=== PATIENT | female | born 1960 | race Caucasian/White ===

== ENCOUNTER 2018-11-18 21:15 | Observation (INO) ==
[2018-11-18 22:54] LABS: Basophils % 0.9 % (0.1-2.0); Eosinophils # 0.1 K/mm3 (0.0-0.4); Eosinophils % 1.5 % (0.1-12.0); Hematocrit 39.6 % (37.0-47.0); Hemoglobin 12.6 g/dL (12.2-16.2); Lymphocytes # 1.5 K/mm3 (0.7-4.5); Lymphocytes % 33.6 % (10-50); Mean Corpuscular HGB Conc 31.9 g/dL (31.8-35.4); Mean Platelet Volume 7.6 fl (7.4-10.4); Monocytes # 0.3 K/mm3 (0.1-1.0); Monocytes % 7.3 % (1.7-9.3); Neutrophils # 2.5 K/mm3 (1.8-7.8); Neutrophils % 56.7 % (37.0-80.0); Platelet Count 80 K/mm3 (142-424); Red Cell Distribution Width 13.1 % (11.5-17.5); White Blood Count 4.3 K/mm3 (4.8-10.8)
[2018-11-18 23:14] LABS: Alanine Aminotransferase 34 U/L (12-78); Albumin Level 3.2 gm/dL (3.4-5.0); Albumin/Globulin Ratio 0.9 (1.1-1.8); Alkaline Phosphatase 108 U/L (46-116); Anion Gap 10.2 mEq/L (5-15); Aspartate Amino Transferase 31 U/L (15-37); Bilirubin,Total 0.4 mg/dL (0.2-1.0); Blood Urea Nitrogen 26 mg/dL (7-18); Carbon Dioxide 29 mmol/L (21.0-32.0); Chloride 105 mmol/L (98-107); Globulin 3.7 gm/dl (1.3-3.2); Glucose 197 mg/dL (74-106); Sodium 141 mmol/L (136-145); Total Protein,Serum 6.9 gm/dL (6.4-8.2)
[2018-11-18 23:19] LABS: Calcium 14.3 mg/dL (8.5-10.1)
--- NOTE | 2018-11-19 00:55 | Emergency Department Note ---
ED Disposition Clinical Impression: Hypercalcemia, Generalized weakness, Hypokalemia, Renal insufficiency Fatigue Qualifiers: Fatigue type: unspecified Qualified Code(s): R53.83 - Other fatigue Sprain of left foot Qualifiers: Encounter type: initial encounter Qualified Code(s): S93.602A - Unspecified sprain of left foot, initial encounter Avulsion fracture of navicular bone of left foot Qualifiers: Encounter type: initial encounter Fracture type: closed Qualified Code(s): S92.252A - Displaced fracture of navicular [scaphoid] of left foot, initial encounter for closed fracture Disposition: Admitted as Observation Condition on Discharge: Fair (Stable) Time of Disposition: 01:30 - Critical Care Critical Care Time: No Attestation: On 11/18/18, the high probability of a clinically significant, sudden or life threatening deterioration of the following system(s) required my full and direct attention, intervention and personal management. The time I documented below is in addition to time spent performing reported procedures but includes the following listed in this critical care notation. Medical Decision Making - Medical Records Medical records reviewed: Yes: I reviewed the patient's medical records. - Guille Inquiry Pt receiving controlled substance: No Guille was queried for this patient: No Vital Signs: 11/18/18 21:25 11/18/18 22:27 11/19/18 00:39 Temperature 98.3 F Temperature Source Oral Pulse Rate [Right Brachial] 71 72 61 Respiratory Rate 18 18 16 Blood Pressure [Right Arm] 151/81 H 159/81 H 109/53 L Blood Pressure Mean [Right Arm] 104 107 71 Blood Pressure Source [Right Arm] Automatic Cuff Automatic Cuff Automatic Cuff Blood Pressure Position [Right Arm] Sitting Sitting Sitting 02 Sat by Pulse Oximetry 95 98 98 Oxygen Delivery Method Room Air Room Air Room Air - Lab Data Lab results reviewed: Yes: I reviewed the patient's lab results. Lab Results 11/18/18 21:38: POC Glucose 172 H 11/18/18 22:45: WBC 4.3 L, RBC 4.40, Hgb 12.6, Hct 39.6, MCV 90.0, MCH 28.7, MCHC 31.9, RDW 13.1, Plt Count 80 L, MPV 7.6, Neut % (Auto) 56.7, Lymph % (Auto) 33.6, [place] % (Auto) 7.3, Eos % (Auto) 1.5, Baso % (Auto) 0.9, Neut # (Auto) 2.5, Lymph # (Auto) 1.5, [place] # (Auto) 0.3, Eos # (Auto) 0.1, Baso # (Auto) 0.0 11/18/18 22:45: Sodium 141, Potassium 3.2 L, Chloride 105, Carbon Dioxide 29, Anion Gap 10.2, BUN 26 H, Creatinine 1.31 H, Estimated Creat Clear 54, Estimated GFR 41 L, Est GFR ( Amer) 50 L, Glucose 197 H, Calcium 14.3 H*, Total Bilirubin 0.4, AST 31, ALT 34, Alkaline Phosphatase 108, Troponin I < 0.02, Total Protein 6.9, Albumin 3.2 L, Globulin 3.7 H, Albumin/Globulin Ratio 0.9 L Result diagrams: 11/18/18 22:45 11/18/18 22:45 Orders (Tests/Meds): ED MEDICATIONS Generic Name Dose Route Start Last Admin Trade Name Freq PRN Reason Stop Dose Admin Sodium Chloride 1,000 mls @ 300 mls/hr 11/19/18 01:15 11/19/18 01:24 Sod Chlor 0.9% 1000ml Bag IV 12/19/18 01:14 300 mls/hr .[id number] MATTHEW Administration Discontinued Medications Generic Name Dose Route Start Last Admin Trade Name Freq PRN Reason Stop Dose Admin Potassium Chloride 40 meq 11/19/18 01:12 11/19/18 01:24 Klor-Con 20meq Tablet PO 11/19/18 01:13 40 meq ONCE ONE Administration ORDERS Category Date Time Status XR chest 2V Stat Exams 11/18/18 21:42 Taken XR foot LT min 3V Stat Exams 11/18/18 21:42 Taken ECG Request by /Santosh Stat Y 11/18/18 21:42 Ordered - ECG Data Tracing #1 I reviewed this ECG and interpreted as documented below: (EKG at 21:32 shows NSR at 70 BPM.) Medical Decision Narrative: 01:07 Pt evaluated. Work up ordered. All results reviewed. Pt noted to have significant hypercalcemia. X-ray of left foot showed possible midfoot navicular avulsion fracture. PCXR normal without acute changes. IV saline hydration ordered for hypercalcemia. CHRISTOPHE ordered for left foot. I have discussed results of work up, diagnosis and care plan with pt and family. They understand, agree and all questions answered. I will discuss case with Dr. Smith regarding admission of this pt. 01:[address] Kellogg. She has accepted care/admit of this pt. General Adult HPI - General Chief complaint: Syncope Stated complaint: keeps blacking out Time Seen by Provider: 11/19/18 00:05 Mode of Arrival: Family Vehicle Limitations: No Limitations Description of Symptoms (Recalled from ER Triage Doc. by RN): Pts daughter states she has been having spells where she gets weak and dizzy and gets limp, the daughter states she fell with this last spell and hurt her left foot. Pt states she has Dm and doesn't keep the a good eye on her sugar. No other symptoms reported at this time. - History of Present Illness HPI narrative: Pt is here in the ER for evaluation with family c/o progressive increase in generalized weakness and fatigue over the past week. Pt has had an elevated calcium in the past and is being worked up by her PCP in [place], [place]. Pt had weakness early tonight and rotated her left foot causing pain, swelling and bruising. Pt denies headache, dizziness, lightheadedness. No chest pain, sob or abdominal pain. No unilateral weakness. History of fibromyalgia and chronic pain. Pt compliant with prescribed medicines. - Related Data Home Medications Medication Instructions Recorded Confirmed Aspirin [Aspirin 81mg chewable 81 mg PO DAILY 11/18/18 11/18/18 tab] Atenolol [Atenolol 25mg Tab] 25 mg PO DAILY 11/18/18 11/18/18 Atorvastatin Calcium [Atorvastatin 80 mg PO DAILY 11/18/18 11/18/18 80mg Tab] Baclofen [Lioresal 10mg tablet] 10 mg PO DAILY 11/18/18 11/18/18 Doxepin HCl [Sinequan 10mg capsule] 10 mg PO DAILY 11/18/18 11/18/18 Ferrous Sulfate [Ferrous Sulfate 325 mg PO DAILY 11/18/18 11/18/18 325mg Tablet] Pregabalin [Lyrica 225mg Cap] 225 mg PO DAILY 11/18/18 11/18/18 Ropinirole HCl 0.25 mg PO DAILY 11/18/18 11/18/18 raNITIdine HCl [Ranitidine HCl] 150 mg PO DAILY 11/18/18 11/18/18 Allergies Allergy/AdvReac Type Severity Reaction Status Date / Time penicillin G Allergy Unknown Verified 11/18/18 21:41 [facility] History - Hepatitis A Screen Drug use history?: No High risk sexual behaviors?: No History of sexually transmitted infection?: No Currently employed?: No Childcare worker?: No Do you have indoor plumbing?: Yes Do you have electricity?: Yes Attestation statement:: This patient has been screened for Hepatitis A risk factors. I have reviewed the patient's past medical history: Yes Medical History: Reports:: Diabetes Mellitus Type 2 - Social History Smoking Status: Current every day smoker # Packs/Day (cigarettes): 1 Alcohol Intake: never Occupational Status: retired Housing: house ROS Obtained: Yes All systems reviewed & no additional complaints - Constitutional Constitutional: Reports system reviewed and no additional complaints, except as docu, Reports as per HPI, Reports fatigue, Reports weakness (generalized) - Eyes Eyes: Reports system reviewed and no additional complaints, except as docu - ENT Ears, Nose, Mouth, and Throat: Reports system reviewed and no additional complaints, except as docu - Cardiovascular Cardiovascular: Reports system reviewed and no additional complaints, except as docu - Respiratory Respiratory: Yes system reviewed and no additional complaints, except as docu - Gastrointestinal Gastrointestingal: Reports: system reviewed and no additional complaints, except as docu - Genitourinary Female Genitourinary: Reports system reviewed and no additional complaints, except as docu - Musculoskeletal Musculoskeletal: Reports system reviewed and no additional complaints, except as docu, Reports as per HPI, Reports muscle weakness (Generalized.), Reports other (Left foot pain, swelling. Fibromyalgia. Chronic pain.) - Integumentary/Breasts Skin/Breast: Reports system reviewed and no additional complaints, except as docu - Neurologic Neurologic: Reports system reviewed and no additional complaints, except as docu - Endocrine Endocrine: Reports system reviewed and no additional complaints, except as docu - Hematologic/Lymphatic Henatologic/Lymphatic: Reports system reviewed and no additional complaints, except as docu - Allergic/Immunologic Allergic/Immunologic: Reports system reviewed and no additional complaints, except as docu Physical Exam - General General appearance: alert, in no apparent distress - Head Head exam: atraumatic, normocephalic, normal inspection - Eye Eye exam: Present: normal appearance, PERRL, EOMI - ENT ENT exam: Present: normal exam, normal oropharynx, mucous membranes moist, other (No otic or nasal discharge.) - Neck Neck exam: Present: trachea midline - Chest Chest inspection: Present: normal inspection, symmetric chest wall rise - Respiratory Respiratory exam: Present: normal lung sounds bilaterally. Absent: respiratory distress, wheezes - Cardiovascular Cardiovascular exam: Present: regular rate, normal heart sounds. Absent: gallop - Abdominal Exam Abdominal exam: Present: soft, normal bowel sounds. Absent: distention, tenderness, guarding, rebound - Extremities Exam Extremities exam: Present: normal inspection, full ROM, normal capillary refill. Absent: tenderness - Back Exam Back exam: Present: normal inspection - Neurological Exam Neurological exam: Present: alert, oriented X3, CN II-XII intact, reflexes normal. Absent: motor sensory deficit - Psychiatric Psychiatric exam: Present: normal affect, normal mood - Skin Skin exam: Present: warm, dry, intact
--- NOTE | 2018-11-19 07:10 | Pharmacy Consult Notes ---
[facility] Pharmacy VTE Monitoring - Patient Demographics Admission date: 11/19/18 Report Date: 11/19/18 Time: 07:10 Allergies/Adverse Reactions: Patient Allergies penicillin G Allergy (Unknown, Verified 11/18/18 21:41) adhesive Adverse Reaction (Verified 11/19/18 05:09) lorazepam [From Ativan] Adverse Reaction (Verified 11/19/18 05:10) Confusion Height: 1.6 m Weight: 73.595 kg Patient Problems: Current Active Problems (Updated 11/19/18 @ 02:51 by Joaquin Shahid III, DO) Hypercalcemia (Acute) Generalized weakness (Acute) Fatigue (Acute) Sprain of left foot (Acute) Avulsion fracture of navicular bone of left foot (Acute) Hypokalemia (Acute) Renal insufficiency (Acute) - VTE Risk Labs: VTE Related Lab Results Hgb 12.6 g/dL (12.2-16.2) 11/18/18 22:45 Hct 39.6 % (37.0-47.0) 11/18/18 22:45 Plt Count 80 K/mm3 (142-424) L 11/18/18 22:45 BUN 26 mg/dL (7-18) H 11/18/18 22:45 Creatinine 1.31 mg/dL (0.55-1.02) H 11/18/18 22:45 Estimated Creat Clear 54 mL/min (50-200) 11/18/18 22:45 Was VTE Risk Assessment Performed: Yes VTE Score: 4 VTE Risk Level: Low Risk Clinical Trial Participant: No - Prophylaxis VTE Prophylaxis Ordered?: Yes Types of VTE Prophylaxis: TEDS Knee High
[2018-11-19 07:58] LABS: Albumin Level 2.9 gm/dL (3.4-5.0); Albumin/Globulin Ratio 0.9 (1.1-1.8); Anion Gap 9.7 mEq/L (5-15); Bilirubin,Total 0.4 mg/dL (0.2-1.0); Globulin 3.4 gm/dl (1.3-3.2); Total Protein,Serum 6.3 gm/dL (6.4-8.2)
[2018-11-19 08:04] LABS: Calcium 13.1 mg/dL (8.5-10.1)
--- NOTE | 2018-11-19 12:01 | H&P/Discharge Summary ---
General - General Admission date:: 11/19/18 Discharge date: 11/19/18 *Admission Date: 11/19/18 *Chief complaint: weakness, fall at home, left foot pain *History of present illness: Ms. Crandall is a 58-year-old female with a history of type 2 diabetes, fibromyalgia, hypertension, hyperlipidemia, history of liver cancer, and restless leg syndrome who has had a progressive increase in generalized weakness and fatigue over the past week. She has had an elevated calcium in the past and this is currently being worked up by her primary care physician Yolande Davies at . She states Thursday and Thursday she began feeling poorly and yesterday was extremely lethargic. She has not been eating and drinking well the past few days. She laid down and took a nap for 4 to 5 hours and when she got up to walk after sleeping, she fell ajd her left foot twisted underneath of her. Her daughter made her come to the ER for evaluation. She did have an x-ray of the left foot showing a possible midfoot navicular avulsion fracture. She was admitted and started on IV fluids and an [place] wrap was applied to the left foot. [facility] History I have reviewed the patient's past medical history: Yes Medical History: Reports:: Cancer (Liver), Diabetes Mellitus Type 2, Hyperlipidemia, Hypertension *Have you ever received a pneumonia vaccine?: Yes *Have you received a flu vaccine this season?: Yes Other Medical History: Reports: Fibromyalgia, Other (RLS) Other Surgeries: Yes: Appendectomy, Cholecystectomy, Hysterectomy-Total, Other (Liver bx, liver resection, breast surgery) - *Social History Educational Level: Completed High School Smoking Status: Current every day smoker Tobacco Type: cigarettes, e-cigarettes # Packs/Day (cigarettes): 1 Alcohol Intake: never *Occupational Status:: retired Housing: house *Travel in the last 8 weeks: None - Psychiatric History Expresses thoughts of harming self/others: None Suicide Plan Description: No Plan Family Hx:: Cancer, Coronary Artery Disease, Heart Attack, Hypertension, Thyroid Disorder Review of Systems - Constitutional Reports chills, Reports malaise, Reports weakness - Eyes Denies blurry vision, Denies double vision - ENT Denies nasal congestion, Denies sore throat - *Cardiovascular Denies chest pain, Denies shortness of breath, Denies rapid, pounding, or irregular heartbeat - *Respiratory Denies cough, Denies shortness of breath - *Gastrointestinal Denies abdominal pain, Denies loose stools, Denies nausea, Denies vomiting - *Genitourinary Denies difficulty urinating, Denies painful urination - *Musculoskeletal Reports joint pain (left foot and right hip (chronic)) - *Neurologic Reports weakness (generalized), Denies frequent falls, Denies headache(s), Denies dizziness Exam Vital signs and Labs for Last 24 Hours: Temp Pulse Resp BP Pulse Ox 98.2 F 78 17 178/80 H 96 11/19/18 08:00 11/19/18 08:00 11/19/18 08:00 11/19/18 08:00 11/19/18 08:00 Laboratory Results - last 24 hr 11/18/18 21:38: POC Glucose 172 H 11/18/18 22:45: WBC 4.3 L, RBC 4.40, Hgb 12.6, Hct 39.6, MCV 90.0, MCH 28.7, MCHC 31.9, RDW 13.1, Plt Count 80 L, MPV 7.6, Neut % (Auto) 56.7, Lymph % (Auto) 33.6, [place] % (Auto) 7.3, Eos % (Auto) 1.5, Baso % (Auto) 0.9, Neut # (Auto) 2.5, Lymph # (Auto) 1.5, [place] # (Auto) 0.3, Eos # (Auto) 0.1, Baso # (Auto) 0.0 11/18/18 22:45: Sodium 141, Potassium 3.2 L, Chloride 105, Carbon Dioxide 29, Anion Gap 10.2, BUN 26 H, Creatinine 1.31 H, Estimated Creat Clear 54, Estimated GFR 41 L, Est GFR ( Amer) 50 L, Glucose 197 H, Calcium 14.3 H*, Total Bilirubin 0.4, AST 31, ALT 34, Alkaline Phosphatase 108, Troponin I < 0.02, Total Protein 6.9, Albumin 3.2 L, Globulin 3.7 H, Albumin/Globulin Ratio 0.9 L 11/19/18 07:30: Sodium 141, Potassium 3.7, Chloride 107, Carbon Dioxide 28, Anion Gap 9.7, BUN 25 H, Creatinine 1.26 H, Estimated Creat Clear 55, Estimated GFR 43 L, Est GFR ( Amer) 52 L, Glucose 259 H D, Calcium 13.1 H*, Total Bilirubin 0.4, AST 31, ALT 31, Alkaline Phosphatase 98, Total Protein 6.3 L, Albumin 2.9 L, Globulin 3.4 H, Albumin/Globulin Ratio 0.9 L I & O for Last 24 hours: Intake & Output 11/16/18 11/17/18 11/18/18 11/19/18 11:59 11:59 11:59 11:59 Intake Total 1103 / 1103 Balance 1103 / 1103 Weight 162 lb 4 oz - Constitutional no acute distress - *Routine HEENT Exam Head: Present: normocephalic Eye: Present: EOMI, PERRL ENT: Present: mucous membranes moist - *Routine Neck Exam Present: supple. Absent: lymphadenopathy - *Routine Respiratory Exam Present: CTA bilaterally - *Routine Cardiovascular Exam Present: RRR - *Routine Abdominal Exam Present: soft, normoactive bowel sounds. Absent: tenderness - *Routine Extremities Exam Absent: cyanosis, clubbing, edema - *Routine Skin Exam Present: warm. Absent: rash Comments: left foot wrapped with an BENITO bandage, there is ttp across the whole dorsal aspect of the foot with significant ecchymosis - *Routine Neurological Exam Present: alert, oriented X3 Hospital Course Hospital Course: The patient's renal function and potassium have improved. Her calcium has improved but is still elevated. This is currently being worked up by her primary care provider at . She states she does have an appointment with an gas singer. She felt much better after IV fluids and wanted to go home. Dr. Morales was consulted for the left foot fracture and did place a splint. The patient was stable to be discharged home with a walker and foot splint as well as Home Health PT. She will need to f/u with her PCP and Dr. Morales. Results Labs on day of discharge: Labs from last 24 hours 11/19/18 11/18/18 11/18/18 07:30 22:45 22:45 WBC 4.3 L RBC 4.40 Hgb 12.6 Hct 39.6 MCV 90.0 MCH 28.7 MCHC 31.9 RDW 13.1 Plt Count 80 L MPV 7.6 Neut % (Auto) 56.7 Lymph % (Auto) 33.6 [place] % (Auto) 7.3 Eos % (Auto) 1.5 Baso % (Auto) 0.9 Neut # (Auto) 2.5 Lymph # (Auto) 1.5 [place] # (Auto) 0.3 Eos # (Auto) 0.1 Baso # (Auto) 0.0 Sodium 141 141 Potassium 3.7 3.2 L Chloride 107 105 Carbon Dioxide 28 29 Anion Gap 9.7 10.2 BUN 25 H 26 H Creatinine 1.26 H 1.31 H Estimated Creat Clear 55 54 Estimated GFR 43 L 41 L Est GFR ( Amer) 52 L 50 L Glucose 259 H D 197 H POC Glucose Calcium 13.1 H* 14.3 H* Total Bilirubin 0.4 0.4 AST 31 31 ALT 31 34 Alkaline Phosphatase 98 108 Troponin I < 0.02 Total Protein 6.3 L 6.9 Albumin 2.9 L 3.2 L Globulin 3.4 H 3.7 H Albumin/Globulin Ratio 0.9 L 0.9 L 11/18/18 21:38 WBC RBC Hgb Hct MCV MCH MCHC RDW Plt Count MPV Neut % (Auto) Lymph % (Auto) [place] % (Auto) Eos % (Auto) Baso % (Auto) Neut # (Auto) Lymph # (Auto) [place] # (Auto) Eos # (Auto) Baso # (Auto) Sodium Potassium Chloride Carbon Dioxide Anion Gap BUN Creatinine Estimated Creat Clear Estimated GFR Est GFR ( Amer) Glucose POC Glucose 172 H Calcium Total Bilirubin AST ALT Alkaline Phosphatase Troponin I Total Protein Albumin Globulin Albumin/Globulin Ratio DS: Diagnosis - Discharge Diagnosis (1) Avulsion fracture of navicular bone of left foot Status: Acute (2) Fatigue Status: Acute (3) Generalized weakness Status: Acute (4) Hypercalcemia Status: Acute (5) Hypokalemia Status: Acute (6) Renal insufficiency Status: Acute (7) Type 2 diabetes mellitus Status: Chronic (8) Fibromyalgia Status: Chronic (9) Hypertension Status: Chronic (10) Hyperlipidemia Status: Chronic Discharge Plan - Patient Discharge Instructions ACTIVITY: Ambulate as tolerated, Limited activity, No heavy lifting Patient Instructions: Kidney Failure, DI for Fatigue, DI for Hypokalemia, DI for Avulsion Fracture, DI for Hypercalcemia, DI for Foot Sprain - Follow up Plan Follow up with: Emmy Morales DPM [Staff Physician] - 11/29/18 3:30 pm Rafaela Kellogg MD [Staff Physician] - 1 week (at [facility] ( afternoon)) Disposition: Home Health Service Home Medications: Home Medications Medication Instructions Recorded Confirmed Type Aspirin [Aspirin 81mg chewable 81 mg PO DAILY 11/18/18 11/18/18 History tab] Atenolol [Atenolol 25mg Tab] 25 mg PO DAILY 11/18/18 11/18/18 History Atorvastatin Calcium [Atorvastatin 80 mg PO HS 11/18/18 11/19/18 History 80mg Tab] Baclofen [Lioresal 10mg tablet] 5 mg PO TID 11/18/18 11/19/18 History Ferrous Sulfate [Ferrous Sulfate 325 mg PO DAILY 11/18/18 11/18/18 History 325mg Tablet] Pregabalin [Lyrica 225mg Cap] 225 mg PO BID 11/18/18 11/19/18 History Ropinirole HCl 0.5 mg PO HS 11/18/18 11/19/18 History raNITIdine HCl [Ranitidine HCl] 150 mg PO BID 11/18/18 11/19/18 History Allopurinol [Allopurinol 100mg 100 mg PO DAILY 11/19/18 11/19/18 History tablet] Cholecalciferol (Vitamin D3) 1,000 unit PO DAILY 11/19/18 11/19/18 History [Vitamin D3 1,000 Unit Cap] Doxepin HCl [Sinequan 10mg capsule] 10 mg PO HS 11/19/18 11/19/18 History Fenofibrate,Micronized 67 mg PO DAILY 11/19/18 11/19/18 History [Fenofibrate] Insulin NPH Hum/Reg Insulin Hm 0 unit SQ DIRECTED 11/19/18 11/19/18 History [Novolin 70-30 100 Unit/ml Vial] Lisinopril [Lisinopril 10mg Tab] 10 mg PO DAILY 11/19/18 11/19/18 History Oxycodone HCl 10 mg PO QID 11/19/18 11/19/18 History Tramadol HCl [Tramadol 50mg 50 mg PO TID 11/19/18 11/19/18 History Tab] fentaNYL [Fentanyl] 12 mcg TD Q72H 11/19/18 11/19/18 History Prescriptions/Medication Reconciliation: Continued Aspirin [Aspirin 81mg chewable tab] 81 mg PO DAILY Ferrous Sulfate [Ferrous Sulfate 325mg Tablet] 325 mg PO DAILY Ropinirole HCl 0.5 mg PO HS raNITIdine HCl [Ranitidine HCl] 150 mg PO BID Pregabalin [Lyrica 225mg Cap] 225 mg PO BID Baclofen [Lioresal 10mg tablet] 5 mg PO TID Atenolol [Atenolol 25mg Tab] 25 mg PO DAILY Fenofibrate,Micronized [Fenofibrate] 67 mg PO DAILY fentaNYL [Fentanyl] 12 mcg TD Q72H Lisinopril [Lisinopril 10mg Tab] 10 mg PO DAILY Oxycodone HCl 10 mg PO QID Tramadol HCl [Tramadol 50mg Tab] 50 mg PO TID Cholecalciferol (Vitamin D3) [Vitamin D3 1,000 Unit Cap] 1,000 unit PO DAILY Atorvastatin Calcium [Atorvastatin 80mg Tab] 80 mg PO HS Allopurinol [Allopurinol 100mg tablet] 100 mg PO DAILY Doxepin HCl [Sinequan 10mg capsule] 10 mg PO HS Insulin NPH Hum/Reg Insulin Hm [Novolin 70-30 100 Unit/ml Vial] 0 unit SQ DIRECTED
--- NOTE | 2018-11-19 14:26 | Consult Report ---
*Admission Date: 11/19/18 *Reason for consult:: Left foot fracture *History of present illness: Ms. Crandall is a 58-year-old female with a history of type 2 diabetes, fibromyalgia, hypertension, hyperlipidemia, history of liver cancer, and restless leg syndrome who has had a progressive increase in generalized weakness and fatigue over the past week. She has had an elevated calcium in the past and this is currently being worked up by her primary care physician Yolande Davies at . She states Thursday and Thursday she began feeling poorly and yesterday was extremely lethargic. She has not been eating and drinking well the past few days. She laid down and took a nap for 4 to 5 hours and when she got up to walk after sleeping, she fell ajd her left foot twisted underneath of her. Her daughter made her come to the ER for evaluation. She did have an x-ray of the left foot showing a possible midfoot navicular avulsion fracture. She was admitted and started on IV fluids and an Benito wrap was applied to the left foot. Review of Systems - Review of Systems Review of systems:: pertinent systems reviewed and negative unless documented below - Constitutional Denies chills, Denies fatigue - Eyes Denies blurry vision - ENT Denies abnormal hearing - *Cardiovascular Denies chest pain - *Respiratory Denies shortness of breath - *Gastrointestinal Denies abdominal pain - *Musculoskeletal Reports joint swelling - Integumentary/Breasts Reports nail changes, Reports dry skin - *Neurologic Reports weakness (generalized), Denies frequent falls, Denies headache(s), Denies dizziness [facility] History I have reviewed the patient's past medical history: Yes Medical History: Reports:: Cancer (Liver), Diabetes Mellitus Type 2, Hyperlipidemia, Hypertension *Have you ever received a pneumonia vaccine?: Yes *Have you received a flu vaccine this season?: Yes Other Medical History: Reports: Fibromyalgia, Other (RLS) Other Surgeries: Yes: Appendectomy, Cholecystectomy, Hysterectomy-Total, Other (Liver bx, liver resection, breast surgery) - *Social History Educational Level: Completed High School Smoking Status: Current every day smoker Tobacco Type: cigarettes, e-cigarettes # Packs/Day (cigarettes): 1 Alcohol Intake: never *Occupational Status:: retired Housing: house *Travel in the last 8 weeks: None - Psychiatric History Expresses thoughts of harming self/others: None Suicide Plan Description: No Plan Family Hx:: Cancer, Coronary Artery Disease, Heart Attack, Hypertension, Thyroid Disorder Meds Home Medications Medication Instructions Recorded Confirmed Type Aspirin [Aspirin 81mg chewable 81 mg PO DAILY 11/18/18 11/18/18 History tab] Atenolol [Atenolol 25mg Tab] 25 mg PO DAILY 11/18/18 11/18/18 History Atorvastatin Calcium [Atorvastatin 80 mg PO HS 11/18/18 11/19/18 History 80mg Tab] Baclofen [Lioresal 10mg tablet] 5 mg PO TID 11/18/18 11/19/18 History Ferrous Sulfate [Ferrous Sulfate 325 mg PO DAILY 11/18/18 11/18/18 History 325mg Tablet] Pregabalin [Lyrica 225mg Cap] 225 mg PO BID 11/18/18 11/19/18 History Ropinirole HCl 0.5 mg PO HS 11/18/18 11/19/18 History raNITIdine HCl [Ranitidine HCl] 150 mg PO BID 11/18/18 11/19/18 History Allopurinol [Allopurinol 100mg 100 mg PO DAILY 11/19/18 11/19/18 History tablet] Cholecalciferol (Vitamin D3) 1,000 unit PO DAILY 11/19/18 11/19/18 History [Vitamin D3 1,000 Unit Cap] Doxepin HCl [Sinequan 10mg capsule] 10 mg PO HS 11/19/18 11/19/18 History Fenofibrate,Micronized 67 mg PO DAILY 11/19/18 11/19/18 History [Fenofibrate] Insulin NPH Hum/Reg Insulin Hm 0 unit SQ DIRECTED 11/19/18 11/19/18 History [Novolin 70-30 100 Unit/ml Vial] Lisinopril [Lisinopril 10mg Tab] 10 mg PO DAILY 11/19/18 11/19/18 History Oxycodone HCl 10 mg PO QID 11/19/18 11/19/18 History Tramadol HCl [Tramadol 50mg 50 mg PO TID 11/19/18 11/19/18 History Tab] fentaNYL [Fentanyl] 12 mcg TD Q72H 11/19/18 11/19/18 History Allergies Allergy/AdvReac Type Severity Reaction Status Date / Time penicillin G Allergy Unknown Verified 11/18/18 21:41 adhesive AdvReac Verified 11/19/18 05:09 lorazepam [From Ativan] AdvReac Confusion Verified 11/19/18 05:10 Exam Vital signs and Labs for Last 24 Hours: Temp Pulse Resp BP Pulse Ox 98.2 F 78 17 178/80 H 96 11/19/18 08:00 11/19/18 08:00 11/19/18 08:00 11/19/18 08:00 11/19/18 08:00 Laboratory Results - last 24 hr 11/18/18 21:38: POC Glucose 172 H 11/18/18 22:45: WBC 4.3 L, RBC 4.40, Hgb 12.6, Hct 39.6, MCV 90.0, MCH 28.7, MCHC 31.9, RDW 13.1, Plt Count 80 L, MPV 7.6, Neut % (Auto) 56.7, Lymph % (Auto) 33.6, [place] % (Auto) 7.3, Eos % (Auto) 1.5, Baso % (Auto) 0.9, Neut # (Auto) 2.5, Lymph # (Auto) 1.5, [place] # (Auto) 0.3, Eos # (Auto) 0.1, Baso # (Auto) 0.0 11/18/18 22:45: Sodium 141, Potassium 3.2 L, Chloride 105, Carbon Dioxide 29, Anion Gap 10.2, BUN 26 H, Creatinine 1.31 H, Estimated Creat Clear 54, Estimated GFR 41 L, Est GFR ( Amer) 50 L, Glucose 197 H, Calcium 14.3 H*, Total Bilirubin 0.4, AST 31, ALT 34, Alkaline Phosphatase 108, Troponin I < 0.02, Total Protein 6.9, Albumin 3.2 L, Globulin 3.7 H, Albumin/Globulin Ratio 0.9 L 11/19/18 07:30: Sodium 141, Potassium 3.7, Chloride 107, Carbon Dioxide 28, Anion Gap 9.7, BUN 25 H, Creatinine 1.26 H, Estimated Creat Clear 55, Estimated GFR 43 L, Est GFR ( Amer) 52 L, Glucose 259 H D, Calcium 13.1 H*, Total Bilirubin 0.4, AST 31, ALT 31, Alkaline Phosphatase 98, Total Protein 6.3 L, Albumin 2.9 L, Globulin 3.4 H, Albumin/Globulin Ratio 0.9 L I & O for Last 24 hours: Intake & Output 11/17/18 11/18/18 11/19/18 11/20/18 11:59 11:59 11:59 11:59 Intake Total 1103 / 1103 240 / 240 Balance 1103 / 1103 240 / 240 Weight 162 lb 4 oz - *Routine HEENT Exam Head: Present: normocephalic - *Routine Neck Exam Present: supple - *Routine Respiratory Exam Present: accessory muscle use - *Routine Cardiovascular Exam Present: RRR - *Routine Abdominal Exam Present: soft - *Routine Rectal Exam Patient deferred: visual exam - *Routine Exam Patient deferred: external exam - *Routine Extremities Exam Present: edema, normal capillary refill, tenderness - *Routine Neurological Exam Present: alert, moving all extremities - Detailed Lower Extremity Exam Top foot image: 1 - Left foot: pain to palpation of 1-4th metatarsals. Pain to 1-3rd TMT joints. Edema and ecchymosis noted. Skin temp warm, no open lesions/ulcers noted. CFT wnl. Decreased light touch sensation b/l LE. Results - Labs Result Diagrams: 11/18/18 22:45 11/19/18 07:30 Labs: Abnormal lab results 11/18/18 11/18/18 11/18/18 Range/Units 21:38 22:45 22:45 WBC 4.3 L (4.8-10.8) K/mm3 Plt Count 80 L (142-424) K/mm3 Potassium 3.2 L (3.5-5.1) mmoL/L BUN 26 H (7-18) mg/dL Creatinine 1.31 H (0.55-1.02) mg/dL Estimated GFR 41 L (>60) ml/min Est GFR ( Amer) 50 L (>60) ML/MIN Glucose 197 H (74-106) mg/dL POC Glucose 172 H (70-110) Calcium 14.3 H* (8.5-10.1) mg/dL Total Protein (6.4-8.2) gm/dL Albumin 3.2 L (3.4-5.0) gm/dL Globulin 3.7 H (1.3-3.2) gm/dl Albumin/Globulin Ratio 0.9 L (1.1-1.8) 11/19/18 Range/Units 07:30 WBC (4.8-10.8) K/mm3 Plt Count (142-424) K/mm3 Potassium (3.5-5.1) mmoL/L BUN 25 H (7-18) mg/dL Creatinine 1.26 H (0.55-1.02) mg/dL Estimated GFR 43 L (>60) ml/min Est GFR ( Amer) 52 L (>60) ML/MIN Glucose 259 H D (74-106) mg/dL POC Glucose (70-110) Calcium 13.1 H* (8.5-10.1) mg/dL Total Protein 6.3 L (6.4-8.2) gm/dL Albumin 2.9 L (3.4-5.0) gm/dL Globulin 3.4 H (1.3-3.2) gm/dl Albumin/Globulin Ratio 0.9 L (1.1-1.8) H & H 11/18/18 Range/Units 22:45 Hgb 12.6 (12.2-16.2) g/dL Hct 39.6 (37.0-47.0) % All other labs normal. - Diagnostic results Ankle/Foot x-ray: report reviewed, image reviewed Ankle/Foot CT: report reviewed, image reviewed Assessment and Plan (1) Avulsion fracture of navicular bone of left foot Current visit: Yes Status: Acute Qualifiers: Encounter type: initial encounter Fracture type: closed Qualified Code(s): S92.252A - Displaced fracture of navicular [scaphoid] of left foot, initial encounter for closed fracture Category: Medical Code(s): S92.252A - Displaced fracture of navicular [scaphoid] of left foot, initial encounter for closed fracture (2) Fatigue Current visit: Yes Status: Acute Qualifiers: Fatigue type: unspecified Qualified Code(s): R53.83 - Other fatigue Category: Medical Code(s): R53.83 - Other fatigue (3) Generalized weakness Current visit: Yes Status: Acute Category: Medical Code(s): R53.1 - Weakness (4) Hypercalcemia Current visit: Yes Status: Acute Category: Medical Code(s): E83.52 - Hypercalcemia (5) Hypokalemia Current visit: Yes Status: Acute Category: Medical Code(s): E87.6 - H ypokalemia (6) Renal insufficiency Current visit: Yes Status: Acute Category: Medical Code(s): N28.9 - Disorder of kidney and ureter, unspecified (7) Type 2 diabetes mellitus Current visit: Yes Status: Chronic Category: Medical Code(s): E11.9 - Type 2 diabetes mellitus without complications (8) Fibromyalgia Current visit: Yes Status: Chronic Category: Medical Code(s): M79.7 - Fibromyalgia (9) Hypertension Current visit: Yes Status: Chronic Category: Medical Code(s): I10 - Essential (primary) hypertension (10) Hyperlipidemia Current visit: Yes Status: Chronic Category: Medical Code(s): E78.5 - Hyperlipidemia, unspecified (11) Lisfranc fracture Current visit: Yes Status: Acute Category: Medical (12) Fracture of metatarsal of left foot, closed Current visit: Yes Status: Acute Category: Medical Code(s): S92.302A - Fracture of unspecified metatarsal bone(s), left foot, initial encounter for closed fracture - Assessment and plan all Dx Assessment and Plan for all problems:: Left foot LisFranc fracture: Left foot xray, 11/18/18: Small avulsion fracture is suspected at the first metatarsal tarsal junction dorsally Left foot CT, 11/19/18: FINDINGS: There is an irregular fracture through the lateral border of the first cuneiforms bone and a linear vertical fracture through the lateral base of the first metatarsal. There are a avulsion chip fractures of the bases of the second third and fourth metatarsals. Fractures at the bases of the second and third metatarsals appear to be comminuted. Though this appears be a Lisfranc type injury there is no obvious tarsometatarsal dislocation identified. The talus and calcaneus appear intact and the plantar arch is normal. There may be mild diffuse soft tissue swelling of the dorsum of the foot. IMPRESSION: Lisfranc type injury involving the first cuneiform bone and bases of the first, second, third and fourth metatarsals Reviewed and evaluated xrays and CT myself. Discussed the x-rays and exam with the patient. Pain controlled. Patient has been compliant with NWB. *Case mgmt for walker prior to d/c 1. Applied a Suarez compression plaster splint on floor 2. Ice and elevate for pain and swelling 3. NSAIDs as needed 4. F/u for re-xray in 4 weeks 5. F/u outpatient in 1.5-2 weeks for splint cast change
== END 2018-11-19 15:40 | disposition home health service (06) ==
LOC: ER 21:15 → 2ND 21:15
PROVIDERS: ADMIT Emergency Medicine; ATTEND Emergency Medicine
CPT/HCPCS: 36415; 71020; 71046; 73630; 73700; 80053; 82962; 84484; 85025; 93005; 96365; 96366; 99284; G0378

== ENCOUNTER 2018-11-22 14:35 | Observation (INO) ==
--- NOTE | 2018-11-22 14:49 | Emergency Department Note ---
ED Disposition Clinical Impression: Hypercalcemia, Generalized weakness Disposition: Admitted as Observation Condition on Discharge: Good Time of Disposition: 15:53 - Critical Care Critical Care Time: No Attestation: On , the high probability of a clinically significant, sudden or life threatening deterioration of the following system(s) required my full and direct attention, intervention and personal management. The time I documented below is in addition to time spent performing reported procedures but includes the following listed in this critical care notation. Medical Decision Making - Medical Records Medical records reviewed: Yes: I reviewed the patient's medical records. - Guille Inquiry Pt receiving controlled substance: No Guille was queried for this patient: No Vital Signs: 11/22/18 14:35 11/22/18 15:29 Temperature 97.9 F Temperature Source Oral Pulse Rate [Right Radial] 63 63 Respiratory Rate 16 Blood Pressure [Right Arm] 157/84 H 175/73 H Blood Pressure Mean [Right Arm] 108 107 Blood Pressure Source [Right Arm] Automatic Cuff Blood Pressure Position [Right Arm] Sitting 02 Sat by Pulse Oximetry 96 96 Oxygen Delivery Method Room Air - Lab Data Lab results reviewed: Yes: I reviewed the patient's lab results. Lab Results 11/22/18 14:37: POC Glucose 140 H 11/22/18 14:45: WBC 5.0, RBC 4.34, Hgb 13.3, Hct 41.1, MCV 94.7, MCH 30.6, MCHC 32.4, RDW 13.6, Plt Count 101 L D, MPV 8.7, Neut % (Auto) 66.4, Lymph % (Auto) 24.4, [place] % (Auto) 7.1, Eos % (Auto) 1.5, Baso % (Auto) 0.6, Neut # (Auto) 3.3, Lymph # (Auto) 1.2, [place] # (Auto) 0.4, Eos # (Auto) 0.1, Baso # (Auto) 0.0 11/22/18 14:45: Sodium 140, Potassium 3.5, Chloride 104, Carbon Dioxide 28, Anion Gap 11.5, BUN 17, Creatinine 1.31 H, Estimated Creat Clear 54, Estimated GFR 41 L, Est GFR ( Amer) 50 L, Glucose 130 H, Calcium 14.7 H*, Total Bilirubin 0.5, AST 34, ALT 35, Alkaline Phosphatase 112, Troponin I < 0.02, Total Protein 7.2, Albumin 3.2 L, Globulin 4.0 H, Albumin/Globulin Ratio 0.8 L 11/22/18 15:22: Urine Color Yellow, Urine Appearance Clear, Urine pH 6.0, Ur Specific [place] 1.025, Urine Protein Negative, Urine Glucose (UA) Negative, Urine Ketones Negative, Urine Blood Negative, Urine Nitrate Negative, Urine Bilirubin Negative, Urine Urobilinogen 0.2, Ur Leukocyte Esterase Negative, Urin e WBC 3-5, Ur Squamous Epith Cells 3-5, Urine Bacteria 1+ Result diagrams: 11/22/18 14:45 11/22/18 14:45 Orders (Tests/Meds): ED MEDICATIONS Generic Name Dose Route Start Last Admin Trade Name Freq PRN Reason Stop Dose Admin Sodium Chloride 1,000 mls @ 999 mls/hr 11/22/18 15:00 11/22/18 15:41 Sod Chlor 0.9% 1000ml Bag IV 11/22/18 16:00 999 mls/hr .Q1H1M MATTHEW Administration ORDERS Category Date Time Status Foot XR right minimum 3 views [XR foot RT min 3V] Stat Exams 11/22/18 14:48 Ordered XR chest 2V Stat Exams 11/22/18 14:36 Ordered Calcium, Ionized Routine Lab 11/22/18 15:08 Received - Physician Consults Physician Consulted: magali Time: 15:52 Reason -: Admission Weakness HPI - General Chief complaint: Weakness Stated complaint: WEAKNESS Time Seen by Provider: 11/22/18 14:54 Mode of Arrival: Wheelchair Source of Information: Patient, Relative Limitations: No Limitations - History of Present Illness HPI Narrative: Sent from Dr. Patricio's office for evaluation of weakness. Recent diagnosis of hypercalcemia, gentleman in room says 14.6 peak level - Related Data Home Medications Medication Instructions Recorded Confirmed Aspirin [Aspirin 81mg chewable 81 mg PO DAILY 11/18/18 11/18/18 tab] Atenolol [Atenolol 25mg Tab] 25 mg PO DAILY 11/18/18 11/18/18 Atorvastatin Calcium [Atorvastatin 80 mg PO HS 11/18/18 11/19/18 80mg Tab] Baclofen [Lioresal 10mg tablet] 5 mg PO TID 11/18/18 11/19/18 Ferrous Sulfate [Ferrous Sulfate 325 mg PO DAILY 11/18/18 11/18/18 325mg Tablet] Pregabalin [Lyrica 225mg Cap] 225 mg PO BID 11/18/18 11/19/18 Ropinirole HCl 0.5 mg PO HS 11/18/18 11/19/18 raNITIdine HCl [Ranitidine HCl] 150 mg PO BID 11/18/18 11/19/18 Allopurinol [Allopurinol 100mg 100 mg PO DAILY 11/19/18 11/19/18 tablet] Cholecalciferol (Vitamin D3) 1,000 unit PO DAILY 11/19/18 11/19/18 [Vitamin D3 1,000 Unit Cap] Doxepin HCl [Sinequan 10mg capsule] 10 mg PO HS 11/19/18 11/19/18 Fenofibrate,Micronized 67 mg PO DAILY 11/19/18 11/19/18 [Fenofibrate] Insulin NPH Hum/Reg Insulin Hm 0 unit SQ DIRECTED 11/19/18 11/19/18 [Novolin 70-30 100 Unit/ml Vial] Lisinopril [Lisinopril 10mg Tab] 10 mg PO DAILY 11/19/18 11/19/18 Oxycodone HCl 10 mg PO QID 11/19/18 11/19/18 Tramadol HCl [Tramadol 50mg 50 mg PO TID 11/19/18 11/19/18 Tab] fentaNYL [Fentanyl] 12 mcg TD Q72H 11/19/18 11/19/18 Allergies Allergy/AdvReac Type Severity Reaction Status Date / Time penicillin G Allergy Unknown Verified 11/18/18 21:41 adhesive AdvReac Verified 11/19/18 05:09 lorazepam [From Ativan] AdvReac Confusion Verified 11/19/18 05:10 [facility] History - Hepatitis A Screen Attestation statement:: This patient has been screened for Hepatitis A risk factors. I have reviewed the patient's past medical history: Yes Medical History: Reports:: Cancer (Liver), Diabetes Mellitus Type 2, Hyperlipidemia, Hypertension Other Medical History: Reports: Fibromyalgia, Other (RLS) Other Surgeries: Yes: Appendectomy, Cholecystectomy, Hysterectomy-Total, Other (Liver bx, liver resection, breast surgery) - Social History Smoking Status: Current every day smoker Tobacco Type: cigarettes, e-cigarettes # Packs/Day (cigarettes): 1 Alcohol Intake: never Occupational Status: retired Housing: house Family Hx:: Cancer, Coronary Artery Disease, Heart Attack, Hypertension, Thyroid Disorder ROS Obtained: Yes All systems reviewed & no additional complaints - Cardiovascular Cardiovascular: Denies palpitations - Gastrointestinal Gastrointestingal: Denies: abdominal pain - Musculoskeletal Musculoskeletal: Denies joint stiffness, Denies joint swelling, Reports muscle weakness - Integumentary/Breasts Skin/Breast: Denies skin pain - Neurologic Neurologic: Reports weakness Physical Exam - General General appearance: alert, in no apparent distress - Head Head exam: atraumatic, normocephalic, normal inspection - Eye Eye exam: Present: normal appearance, PERRL, EOMI - ENT ENT exam: Present: normal exam, normal oropharynx, mucous membranes moist, TM's normal bilaterally, normal external ear exam - Chest Chest inspection: Present: normal inspection, symmetric chest wall rise. Absent: tenderness - Respiratory Respiratory exam: Present: normal lung sounds bilaterally. Absent: respiratory distress - Cardiovascular Cardiovascular exam: Present: regular rate, normal rhythm. Absent: JVD - Abdominal Exam Abdominal exam: Present: soft, normal bowel sounds. Absent: distention, tenderness, guarding - Extremities Exam Extremities exam: Present: normal inspection, full ROM, normal capillary refill. Absent: calf tenderness - Expanded Lower Extremity Exam Left Hip/Pelvis exam: Present: other (posterior splint already in place) Right Hip/Pelvis exam: Present: normal inspection Upper leg exam: Present: normal inspection Knee exam: Present: normal inspection Lower leg exam: Present: normal inspection Ankle exam: Present: normal inspection Foot/toe exam: Present: ecchymosis, other (minimal swelling 5th toe, light ecchymotic changes clilnically). Absent: normal inspection - Neurological Exam Neurological exam: Present: alert, oriented X3 - Psychiatric Psychiatric exam: Present: normal affect, normal mood - Skin Skin exam: Present: warm, dry, intact, normal color - Lymphatic Lymphatic Findings: no adenopathy
[2018-11-22 14:56] LABS: Basophils % 0.6 % (0.1-2.0); Eosinophils # 0.1 K/mm3 (0.0-0.4); Eosinophils % 1.5 % (0.1-12.0); Hematocrit 41.1 % (37.0-47.0); Hemoglobin 13.3 g/dL (12.2-16.2); Lymphocytes # 1.2 K/mm3 (0.7-4.5); Lymphocytes % 24.4 % (10-50); Mean Corpuscular HGB Conc 32.4 g/dL (31.8-35.4); Mean Corpuscular Volume 94.7 fl (81-99); Mean Platelet Volume 8.7 fl (7.4-10.4); Monocytes # 0.4 K/mm3 (0.1-1.0); Monocytes % 7.1 % (1.7-9.3); Neutrophils # 3.3 K/mm3 (1.8-7.8); Neutrophils % 66.4 % (37.0-80.0); Platelet Count 101 K/mm3 (142-424); Red Blood Count 4.34 M/mm3 (4.20-5.40); Red Cell Distribution Width 13.6 % (11.5-17.5)
[2018-11-22 15:08] LABS: Alanine Aminotransferase 35 U/L (12-78); Albumin Level 3.2 gm/dL (3.4-5.0); Albumin/Globulin Ratio 0.8 (1.1-1.8); Alkaline Phosphatase 112 U/L (46-116); Anion Gap 11.5 mEq/L (5-15); Aspartate Amino Transferase 34 U/L (15-37); Bilirubin,Total 0.5 mg/dL (0.2-1.0); Blood Urea Nitrogen 17 mg/dL (7-18); Carbon Dioxide 28 mmol/L (21.0-32.0); Chloride 104 mmol/L (98-107); Glucose 130 mg/dL (74-106); Sodium 140 mmol/L (136-145); Total Protein,Serum 7.2 gm/dL (6.4-8.2)
[2018-11-22 15:18] LABS: Calcium 14.7 mg/dL (8.5-10.1)
[2018-11-22 15:27] LABS: Microscopic, Urine URINE MICROSCOPIC (MICROSCOPIC)
[2018-11-22 15:29] LABS: Appearance,Urine CLEAR (Clear); Bilirubin,Urine Negative (Negative); Blood, Urine Negative (Negative); Color,Urine YELLOW (Yellow); Glucose,Urine (UA) Negative (Negative); Ketones,Urine Negative (Negative); Leukocyte Esterase,Urine Negative (Negative); Protein,Urine Negative (Negative); Specific Gravity, Urine 1.025 (1.005-1.030); Urobilinogen,Urine 0.2 EU/dl (0.2)
[2018-11-22 15:39] LABS: Bacteria,Urine 1+ /lpf
--- NOTE | 2018-11-22 20:02 | History & Physical Report ---
*Admission Date: 11/22/18 *Chief complaint: generalized weakness *History of present illness: Patient is a 58 year old female who presented to the clinic for a follow-up for a recent discharge on 11/19/2018 with generalized weakness. Family was concerned as she had another fall and had a trauma to right foot. Her fifth toe looked bluish and she is not using her cane anymore. She haven't had a chance to see her PCP for follow-up on her hypercalcemia. Her etiology is still unclear. I advised them to go to ED for further evaluation. In the ED, it shows that she still has hypercalcemia. She was admitted and started on IV hydration. I will order appropriate blood work to determine the etiology for this. It is important to note that last admission she had avulsion fracture on left first metatarsal joint and so her left foot is in a splint. [facility] History I have reviewed the patient's past medical history: Yes Medical History: Reports:: Cancer (Liver), Diabetes Mellitus Type 2, Hyperlipidemia, Hypertension, MRSA *Have you ever received a pneumonia vaccine?: Yes *Have you received a flu vaccine this season?: Yes Other Medical History: Reports: Fibromyalgia, Other (RLS) Other Surgeries: Yes: Appendectomy, Cholecystectomy, Hysterectomy-Total, Other (Liver bx, liver resection, breast surgery) Amputation: No Fractures: No - *Social History Educational Level: Completed High School Smoking Status: Current every day smoker Tobacco Type: cigarettes # Packs/Day (cigarettes): 0 Alcohol Intake: never *Occupational Status:: retired Housing: house Household Members: spouse *Travel in the last 8 weeks: None - Psychiatric History Expresses thoughts of harming self/others: None Suicide Plan Description: No Plan Family Hx:: Cancer, Coronary Artery Disease, Heart Attack, Hyperlipidemia, Hypertension Review of Systems - Constitutional Reports lack of energy, Reports weakness - Eyes Denies double vision, Denies discharge, Denies loss of vision - ENT Denies change in voice, Denies dry mouth, Denies pain with swallowing - *Cardiovascular Reports chest pain at rest, Denies chest pain, Denies chest pain with activity, Denies shortness of breath, Denies shortness of breath with activity - *Respiratory Denies change in phlegm color, Denies chest congestion, Denies cough, Denies shortness of breath, Denies shortness of breath with activity - *Gastrointestinal Denies abdominal pain, Denies change in bowel habits, Denies constipation - *Genitourinary Denies painful urination - *Musculoskeletal Reports joint pain (diffuse), Reports muscle weakness Comments: wheelchair bound 2/2 generalized weakness - Integumentary/Breasts Denies change in hair, Denies yellowing of the skin, Denies new lesions - *Neurologic Reports weakness, Denies abnormal movements - Psychiatric Denies anxiety, Denies confusion, Denies depression, Denies memory loss - Endocrine Denies cold intolerance, Denies excessive sweating - Hematologic/Lymphatic Denies easy bleeding, Denies easy bruising Meds Home Medications Medication Instructions Recorded Confirmed Type Aspirin [Aspirin 81mg chewable 81 mg PO DAILY 11/18/18 11/22/18 History tab] Atenolol [Atenolol 25mg Tab] 25 mg PO DAILY 11/18/18 11/22/18 History Atorvastatin Calcium [Atorvastatin 80 mg PO HS 11/18/18 11/22/18 History 80mg Tab] Baclofen [Lioresal 10mg tablet] 5 mg PO TID 11/18/18 11/22/18 History Pregabalin [Lyrica 225mg Cap] 225 mg PO BID 11/18/18 11/22/18 History Ropinirole HCl 0.5 mg PO HS 11/18/18 11/22/18 History raNITIdine HCl [Ranitidine HCl] 150 mg PO BID 11/18/18 11/22/18 History Allopurinol [Allopurinol 100mg 100 mg PO PM 11/19/18 11/22/18 History tablet] Cholecalciferol (Vitamin D3) 1,000 unit PO DAILY 11/19/18 11/22/18 History [Vitamin D3 1,000 Unit Cap] Fenofibrate,Micronized 67 mg PO DAILY 11/19/18 11/22/18 History [Fenofibrate] Insulin NPH Hum/Reg Insulin Hm 0 unit SQ DIRECTED 11/19/18 11/22/18 History [Novolin 70-30 100 Unit/ml Vial] Lisinopril [Lisinopril 10mg Tab] 10 mg PO DAILY 11/19/18 11/22/18 History Oxycodone HCl 10 mg PO QID 11/19/18 11/22/18 History Tramadol HCl [Tramadol 50mg 50 mg PO TID 11/19/18 11/22/18 History Tab] fentaNYL [Fentanyl] 12 mcg TD Q72H 11/19/18 11/22/18 History Allergies Allergy/AdvReac Type Severity Reaction Status Date / Time penicillin G Allergy Unknown Verified 11/18/18 21:41 adhesive AdvReac Verified 11/19/18 05:09 lorazepam [From Ativan] AdvReac Confusion Verified 11/19/18 05:10 Exam Vital signs and Labs for Last 24 Hours: Temp Pulse Resp BP Pulse Ox 98.2 F 71 18 171/78 H 97 11/22/18 16:34 11/22/18 16:34 11/22/18 16:34 11/22/18 18:14 11/22/18 18:31 Laboratory Results - last 24 hr 11/22/18 14:37: POC Glucose 140 H 11/22/18 14:45: WBC 5.0, RBC 4.34, Hgb 13.3, Hct 41.1, MCV 94.7, MCH 30.6, MCHC 32.4, RDW 13.6, Plt Count 101 L D, MPV 8.7, Neut % (Auto) 66.4, Lymph % (Auto) 24.4, [place] % (Auto) 7.1, Eos % (Auto) 1.5, Baso % (Auto) 0.6, Neut # (Auto) 3.3, Lymph # (Auto) 1.2, [place] # (Auto) 0.4, Eos # (Auto) 0.1, Baso # (Auto) 0.0 11/22/18 14:45: Sodium 140, Potassium 3.5, Chloride 104, Carbon Dioxide 28, Anion Gap 11.5, BUN 17, Creatinine 1.31 H, Estimated Creat Clear 54, Estimated GFR 41 L, Est GFR ( Amer) 50 L, Glucose 130 H, Calcium 14.7 H*, Total Bilirubin 0.5, AST 34, ALT 35, Alkaline Phosphatase 112, Troponin I < 0.02, Total Protein 7.2, Albumin 3.2 L, Globulin 4.0 H, Albumin/Globulin Ratio 0.8 L 11/22/18 15:22: Urine Color Yellow, Urine Appearance Clear, Urine pH 6.0, Ur Specific [place] 1.025, Urine Protein Negative, Urine Glucose (UA) Negative, Urine Ketones Negative, Urine Blood Negative, Urine Nitrate Negative, Urine Bilirubin Negative, Urine Urobilinogen 0.2, Ur Leukocyte Esterase Negative, Urine WBC 3-5, Ur Squamous Epith Cells 3-5, Urine Bacteria 1+ I & O for Last 24 hours: Intake & Output 11/20/18 11/21/18 11/22/18 11/23/18 11:59 11:59 11:59 11:59 Intake Total 696 / 696 Balance 696 / 696 Weight 165 lb 5 oz - *Routine HEENT Exam Head: Present: normocephalic Eye: Present: EOMI, PERRL ENT: Present: mucous membranes moist - *Routine Neck Exam Present: supple. Absent: lymphadenopathy - *Routine Respiratory Exam Present: CTA bilaterally - *Routine Cardiovascular Exam Present: RRR - *Routine Abdominal Exam Present: soft, normoactive bowel sounds. Absent: tenderness - *Routine Extremities Exam Absent: cyanosis, clubbing, edema Comments: diffuse joint pain at multiple joints and generalized muscle weakness - *Routine Skin Exam Present: warm. Absent: rash - *Routine Neurological Exam Present: alert, oriented X3 Assessment and Plan (1) Hypercalcemia Current visit: Yes Status: Acute Category: Medical Code(s): E83.52 - Hypercalcemia (2) Generalized weakness Current visit: Yes Status: Acute Category: Medical Code(s): R53.1 - Weakness (3) Type 2 diabetes mellitus Current visit: No Status: Chronic Category: Medical Code(s): E11.9 - Type 2 diabetes mellitus without complications (4) Fibromyalgia Current visit: No Status: Chronic Category: Medical Code(s): M79.7 - Fibromyalgia (5) Hypertension Current visit: No Status: Chronic Category: Medical Code(s): I10 - Essential (primary) hypertension (6) Fracture of metatarsal of left foot, closed Current visit: No Status: Acute Category: Medical Code(s): S92.302A - Fracture of unspecified metatarsal bone(s), left foot, initial encounter for closed fracture - Assessment and plan all Dx Assessment and Plan for all problems:: Will order appropriate blood work. Get physical therapy on board. Will dictate management based on clinical course.
[2018-11-23 06:15] LABS: Basophils % 0.4 % (0.1-2.0); Eosinophils # 0.1 K/mm3 (0.0-0.4); Eosinophils % 2.2 % (0.1-12.0); Lymphocytes # 1.2 K/mm3 (0.7-4.5); Lymphocytes % 34.6 % (10-50); Mean Corpuscular HGB Conc 32.2 g/dL (31.8-35.4); Mean Corpuscular Volume 90.1 fl (81-99); Mean Platelet Volume 8.3 fl (7.4-10.4); Monocytes # 0.3 K/mm3 (0.1-1.0); Monocytes % 8.8 % (1.7-9.3); Neutrophils # 1.8 K/mm3 (1.8-7.8); Platelet Count 79 K/mm3 (142-424); Red Blood Count 3.77 M/mm3 (4.20-5.40); White Blood Count 3.3 K/mm3 (4.8-10.8)
[2018-11-23 06:24] LABS: Anion Gap 10.1 mEq/L (5-15)
[2018-11-23 06:57] LABS: Hemoglobin 11.1 g/dL (12.2-16.2)
[2018-11-23 07:00] LABS: Calcium 12.9 mg/dL (8.5-10.1)
--- NOTE | 2018-11-23 07:20 | Pharmacy Consult Notes ---
[facility] Pharmacy VTE Monitoring - Patient Demographics Admission date: 11/22/18 Report Date: 11/23/18 Time: :19 Allergies/Adverse Reactions: Patient Allergies penicillin G Allergy (Unknown, Verified 11/18/18 21:41) adhesive Adverse Reaction (Verified 11/19/18 05:09) lorazepam [From Ativan] Adverse Reaction (Verified 11/19/18 05:10) Confusion Height: 1.6 m Weight: 75.863 kg Patient Problems: Current Active Problems (Updated 11/22/18 @ 20:08 by Rafaela Kellogg MD) Hypercalcemia (Acute) Generalized weakness (Acute) - VTE Risk Labs: VTE Related Lab Results Hgb 11.1 g/dL (12.2-16.2) L D 11/23/18 06:00 Hct 34.0 % (37.0-47.0) L 11/23/18 06:00 Plt Count 79 K/mm3 (142-424) L 11/23/18 06:00 BUN 18 mg/dL (7-18) 11/23/18 06:00 Creatinine 1.35 mg/dL (0.55-1.02) H 11/23/18 06:00 Estimated Creat Clear 53 mL/min (50-200) 11/23/18 06:00 VTE Score: 8 VTE Risk Level: Moderate Risk - Prophylaxis VTE Prophylaxis Ordered?: Yes Types of VTE Prophylaxis: TEDS Knee High Location of Applied Device: Right Leg - VTE Diagnosis Confirmed Treatment or plan recommended: Continue Current Treatment
--- NOTE | 2018-11-23 09:06 | Progress Note ---
<Lucinda Zaragoza - Last Filed: 11/23/18 09:02> Internal Medicine - PN: Subj *Date: 11/23/18 *Time: 09:02 Interval history: Pt is sitting up in chair this morning with daughter at bedside. She is drowsy, arouses briefly to speech, falls quickly back to sleep. She is able to answer appropriately while awake. Her daughter reports she is unchanged. Daughter also reports that pt was instructed that she should be non-weight bearing on left foot by Dr. Morales following her surgery on 11/19/18. Exam Vital signs and Labs for Last 24 Hours: Temp Pulse Resp BP Pulse Ox 98.3 F 70 18 167/74 H 96 11/23/18 07:28 11/23/18 07:28 11/23/18 07:28 11/23/18 07:28 11/23/18 07:28 Laboratory Results - last 24 hr 11/22/18 14:37: POC Glucose 140 H 11/22/18 14:45: WBC 5.0, RBC 4.34, Hgb 13.3, Hct 41.1, MCV 94.7, MCH 30.6, MCHC 32.4, RDW 13.6, Plt Count 101 L D, MPV 8.7, Neut % (Auto) 66.4, Lymph % (Auto) 24.4, [place] % (Auto) 7.1, Eos % (Auto) 1.5, Baso % (Auto) 0.6, Neut # (Auto) 3.3, Lymph # (Auto) 1.2, [place] # (Auto) 0.4, Eos # (Auto) 0.1, Baso # (Auto) 0.0 11/22/18 14:45: Sodium 140, Potassium 3.5, Chloride 104, Carbon Dioxide 28, Anion Gap 11.5, BUN 17, Creatinine 1.31 H, Estimated Creat Clear 54, Estimated GFR 41 L, Est GFR ( Amer) 50 L, Glucose 130 H, Calcium 14.7 H*, Total Bilirubin 0.5, AST 34, ALT 35, Alkaline Phosphatase 112, Troponin I < 0.02, Total Protein 7.2, Albumin 3.2 L, Globulin 4.0 H, Albumin/Globulin Ratio 0.8 L 11/22/18 15:22: Urine Color Yellow, Urine Appearance Clear, Urine pH 6.0, Ur Specific [place] 1.025, Urine Protein Negative, Urine Glucose (UA) Negative, Urine Ketones Negative, Urine Blood Negative, Urine Nitrate Negative, Urine Bilirubin Negative, Urine Urobilinogen 0.2, Ur Leukocyte Esterase Negative, Urine WBC 3-5, Ur Squamous Epith Cells 3-5, Urine Bacteria 1+ 11/22/18 20:05: POC Glucose 200 H 11/23/18 05:57: POC Glucose 106 11/23/18 06:00: Sodium 147 H, Potassium 3.1 L, Chloride 112 H, Carbon Dioxide 28, Anion Gap 10.1, BUN 18, Creatinine 1.35 H, Estimated Creat Clear 53, Estimated GFR 40 L, Est GFR ( Amer) 48 L, Glucose 104, Calcium 12.9 H* D 11/23/18 06:00: WBC 3.3 L D, RBC 3.77 L, Hgb 11.1 L D, Hct 34.0 L, MCV 90.1, MCH 29.0, MCHC 32.2, RDW 13.0, Plt Count 79 L, MPV 8.3, Neut % (Auto) 54.0, Lymph % (Auto) 34.6, [place] % (Auto) 8.8, Eos % (Auto) 2.2, Baso % (Auto) 0.4, Neut # (Auto) 1.8, Lymph # (Auto) 1.2, [place] # (Auto) 0.3, Eos # (Auto) 0.1, Baso # (Auto) 0.0 I & O for Last 24 hours: Intake & Output 11/20/18 11/21/18 11/22/18 11/23/18 11:59 11:59 11:59 11:59 Intake Total 3305 / 3305 Output Total 1600 / 1600 Balance 1705 / 1705 Weight 167 lb 4 oz - Constitutional no acute distress - *Routine HEENT Exam Head: Present: normocephalic ENT: Present: mucous membranes moist - *Routine Respiratory Exam Comments: CTAB A&P - *Routine Cardiovascular Exam Present: RRR - *Routine Abdominal Exam Present: soft, normoactive bowel sounds. Absent: tenderness, distended, rebound, guarding, rigid, organomegaly, mass - *Routine Extremities Exam Absent: calf tenderness Comments: LLE dressing C/D/I; RLE 2+ pulses, no edema - *Routine Neurological Exam drowsy, arouses to speech, falls back to sleep quickly Assessment and Plan (1) Hypercalcemia Current visit: Yes Status: Acute Category: Medical Code(s): E83.52 - Hypercalcemia (2) Generalized weakness Current visit: Yes Status: Acute Category: Medical Code(s): R53.1 - Weakness (3) Type 2 diabetes mellitus Current visit: No Status: Chronic Category: Medical Code(s): E11.9 - Type 2 diabetes mellitus without complications (4) Fibromyalgia Current visit: No Status: Chronic Category: Medical Code(s): M79.7 - Fibromyalgia (5) Hypertension Current visit: No Status: Chronic Category: Medical Code(s): I10 - Essential (primary) hypertension (6) Fracture of metatarsal of left foot, closed Current visit: No Status: Acute Category: Medical Code(s): S92.302A - Fracture of unspecified metatarsal bone(s), left foot, initial encounter for closed fracture - Assessment and plan all Dx Assessment and Plan for all problems:: Calcium level is improving. Additional labs pending. Further per Dr. Patricio. <Rafaela Kellogg - Last Filed: 11/23/18 09:56> Internal Medicine - PN: Subj *Date: 11/23/18 *Time: 09:53 Exam Vital signs and Labs for Last 24 Hours: Temp Pulse Resp BP Pulse Ox 98.3 F 70 18 167/74 H 93 L 11/23/18 07:28 11/23/18 07:28 11/23/18 07:28 11/23/18 07:28 11/23/18 08:00 Laboratory Results - last 24 hr 11/22/18 14:37: POC Glucose 140 H 11/22/18 14:45: WBC 5.0, RBC 4.34, Hgb 13.3, Hct 41.1, MCV 94.7, MCH 30.6, MCHC 32.4, RDW 13.6, Plt Count 101 L D, MPV 8.7, Neut % (Auto) 66.4, Lymph % (Auto) 24.4, [place] % (Auto) 7.1, Eos % (Auto) 1.5, Baso % (Auto) 0.6, Neut # (Auto) 3.3, Lymph # (Auto) 1.2, [place] # (Auto) 0.4, Eos # (Auto) 0.1, Baso # (Auto) 0.0 11/22/18 14:45: Sodium 140, Potassium 3.5, Chloride 104, Carbon Dioxide 28, Anion Gap 11.5, BUN 17, Creatinine 1.31 H, Estimated Creat Clear 54, Estimated GFR 41 L, Est GFR ( Amer) 50 L, Glucose 130 H, Calcium 14.7 H*, Total Bilirubin 0.5, AST 34, ALT 35, Alkaline Phosphatase 112, Troponin I < 0.02, Total Protein 7.2, Albumin 3.2 L, Globulin 4.0 H, Albumin/Globulin Ratio 0.8 L 11/22/18 15:22: Urine Color Yellow, Urine Appearance Clear, Urine pH 6.0, Ur Specific [place] 1.025, Urine Protein Negative, Urine Glucose (UA) Negative, Urine Ketones Negative, Urine Blood Negative, Urine Nitrate Negative, Urine Bilirubin Negative, Urine Urobilinogen 0.2, Ur Leukocyte Esterase Negative, Urin e WBC 3-5, Ur Squamous Epith Cells 3-5, Urine Bacteria 1+ 11/22/18 20:05: POC Glucose 200 H 11/23/18 05:57: POC Glucose 106 11/23/18 06:00: Sodium 147 H, Potassium 3.1 L, Chloride 112 H, Carbon Dioxide 28, Anion Gap 10.1, BUN 18, Creatinine 1.35 H, Estimated Creat Clear 53, Estimated GFR 40 L, Est GFR ( Amer) 48 L, Glucose 104, Calcium 12.9 H* D 11/23/18 06:00: WBC 3.3 L D, RBC 3.77 L, Hgb 11.1 L D, Hct 34.0 L, MCV 90.1, MCH 29.0, MCHC 32.2, RDW 13.0, Plt Count 79 L, MPV 8.3, Neut % (Auto) 54.0, Lymph % (Auto) 34.6, [place] % (Auto) 8.8, Eos % (Auto) 2.2, Baso % (Auto) 0.4, Neut # (Auto) 1.8, Lymph # (Auto) 1.2, [place] # (Auto) 0.3, Eos # (Auto) 0.1, Baso # (Auto) 0.0 I & O for Last 24 hours: Intake & Output 11/20/18 11/21/18 11/22/18 11/23/18 11:59 11:59 11:59 11:59 Intake Total 3305 / 3305 Output Total 1600 / 1600 Balance 1705 / 1705 Weight 167 lb 4 oz Assessment and Plan (1) Hypercalcemia Current visit: Yes Status: Acute Category: Medical Code(s): E83.52 - Hypercalcemia (2) Generalized weakness Current visit: Yes Status: Acute Category: Medical Code(s): R53.1 - Weakness (3) Type 2 diabetes mellitus Current visit: No Status: Chronic Category: Medical Code(s): E11.9 - Type 2 diabetes mellitus without complications (4) Fibromyalgia Current visit: No Status: Chronic Category: Medical Code(s): M79.7 - Fibromyalgia (5) Hypertension Current visit: No Status: Chronic Category: Medical Code(s): I10 - Essential (primary) hypertension (6) Fracture of metatarsal of left foot, closed Current visit: No Status: Acute Category: Medical Code(s): S92.302A - Fracture of unspecified metatarsal bone(s), left foot, initial encounter for closed fracture - Assessment and plan all Dx Assessment and Plan for all problems:: will hold lyrica and oxycodone 2/2 patient being drowsy and low platelet count. await for labs and imaging. possible discharge in 2-3 days.
--- NOTE | 2018-11-24 08:12 | Progress Note ---
<Caroline Dillon - Last Filed: 11/24/18 08:09> Internal Medicine - PN: Subj *Date: 11/24/18 *Time: 08:09 Interval history: Patient states she had a very rough night. She was having pain in both legs due to her fibromyalgia and restless leg syndrome. She was unable to sleep and was given morphine and within an hour she was in severe pain. The on-call physician was contacted and she states she was given some oxycodone which then did relieve her pain. She ate her breakfast this morning and slept decent after receiving the oxycodone last night. She is still weak but not as bad as she was yesterday. Exam Vital signs and Labs for Last 24 Hours: Temp Pulse Resp BP Pulse Ox 98.1 F 65 16 154/67 H 97 11/24/18 07:57 11/24/18 07:57 11/24/18 07:57 11/24/18 07:57 11/24/18 07:57 Laboratory Results - last 24 hr 11/23/18 06:00: Magnesium 1.6 11/23/18 10:18: POC Glucose 174 H 11/23/18 19:52: POC Glucose 239 H 11/24/18 05:58: POC Glucose 120 H I & O for Last 24 hours: Intake & Output 11/21/18 11/22/18 11/23/18 11/24/18 11:59 11:59 11:59 11:59 Intake Total 3305 / 3305 5982 / 5982 Output Total 1600 / 1600 1600 / 1600 Balance 1705 / 1705 4382 / 4382 Weight 167 lb 4 oz 167 lb 7 oz - Constitutional no acute distress - *Routine Respiratory Exam Present: CTA bilaterally - *Routine Cardiovascular Exam Present: RRR - *Routine Abdominal Exam Present: soft, normoactive bowel sounds. Absent: tenderness - *Routine Extremities Exam Present: edema (left foot which is in a splint). Absent: cyanosis, clubbing - *Routine Skin Exam Present: warm. Absent: rash - *Routine Neurological Exam Present: alert, oriented X3 Assessment and Plan (1) Hypercalcemia Current visit: Yes Status: Acute Category: Medical Code(s): E83.52 - Hypercalcemia (2) Generalized weakness Current visit: Yes Status: Acute Category: Medical Code(s): R53.1 - Weakne ss (3) Type 2 diabetes mellitus Current visit: No Status: Chronic Category: Medical Code(s): E11.9 - Type 2 diabetes mellitus without complications (4) Fibromyalgia Current visit: No Status: Chronic Category: Medical Code(s): M79.7 - Fibromyalgia (5) Hypertension Current visit: No Status: Chronic Category: Medical Code(s): I10 - Essential (primary) hypertension (6) Fracture of metatarsal of left foot, closed Current visit: No Status: Acute Category: Medical Code(s): S92.302A - Fracture of unspecified metatarsal bone(s), left foot, initial encounter for closed fracture (7) Hypokalemia Current visit: No Status: Acute Category: Medical Code(s): E87.6 - Hypokalemia - Assessment and plan all Dx Assessment and Plan for all problems:: Patient's calcium is elevated and her potassium is low. Will start on potassium supplementation. She is now anemic after hydration. Will discuss further care with Dr. Kellogg. <Rafaela Kellogg - Last Filed: 11/24/18 09:41> Internal Medicine - PN: Subj *Date: 11/24/18 *Time: 09:24 Exam Vital signs and Labs for Last 24 Hours: Temp Pulse Resp BP Pulse Ox 98.1 F 65 16 154/67 H 97 11/24/18 07:57 11/24/18 07:57 11/24/18 07:57 11/24/18 07:57 11/24/18 07:57 Laboratory Results - last 24 hr 11/23/18 06:00: Magnesium 1.6 11/23/18 10:18: POC Glucose 174 H 11/23/18 19:52: POC Glucose 239 H 11/24/18 05:58: POC Glucose 120 H I & O for Last 24 hours: Intake & Output 11/21/18 11/22/18 11/23/18 11/24/18 11:59 11:59 11:59 11:59 Intake Total 3305 / 3305 5982 / 5982 Output Total 1600 / 1600 1600 / 1600 Balance 1705 / 1705 4382 / 4382 Weight 167 lb 4 oz 167 lb 7 oz Assessment and Plan (1) Hypercalcemia Current visit: Yes Status: Acute Category: Medical Code(s): E83.52 - Hypercalcemia (2) Generalized weakness Current visit: Yes Status: Acute Category: Medical Code(s): R53.1 - Weakness (3) Type 2 diabetes mellitus Current visit: No Status: Chronic Category: Medical Code(s): E11.9 - Type 2 diabetes mellitus without complications (4) Fibromyalgia Current visit: No Status: Chronic Category: Medical Code(s): M79.7 - Fibromyalgia (5) Hypertension Current visit: No Status: Chronic Category: Medical Code(s): I10 - Essential (primary) hypertension (6) Fracture of metatarsal of left foot, closed Current visit: No Status: Acute Category: Medical Code(s): S92.302A - Fracture of unspecified metatarsal bone(s), left foot, initial encounter for closed fracture (7) Hypokalemia Current visit: No Status: Acute Category: Medical Code(s): E87.6 - Hypokalemia - Assessment and plan all Dx Assessment and Plan for all problems:: Patient is to be discharged with home health with PT on board (with restrictions of [facility] for 2 months). Patient was advised to take ASA as she will be bedridden. Patient was advised to drink fluids (water and lemonade preferably). Will do outpatient f/u.
--- NOTE | 2018-11-24 22:58 | Discharge Summary ---
General - General Admission date:: 11/22/18 Discharge date: 11/24/18 HPI HPI: Patient is a 58 year old female who presented to the clinic for a follow-up for a recent discharge on 11/19/2018 with generalized weakness. Family was concerned as she had another fall and had a trauma to right foot. Her fifth toe looked bluish and she is not using her cane anymore. She haven't had a chance to see her PCP for follow-up on her hypercalcemia. Her etiology is still unclear. I advised them to go to ED for further evaluation. In the ED, it shows that she still has hypercalcemia. She was admitted and started on IV hydration. I will order appropriate blood work to determine the etiology for this. It is important to note that last admission she had avulsion fracture on left first metatarsal joint and so her left foot is in a splint. Hospital Course Hospital Course: The patient's chest x-ray showed nothing acute. Her right foot x-ray showed no fracture. She was admitted and lab work was ordered. Physical therapy was consulted as well. The patient's daughter did report that she was instructed that she should be nonweightbearing to the left foot by Dr. Morales following her surgery on 11/19/2018. The patient's calcium level was elevated but did improve slightly. She was very drowsy, therefore her Lyrica and oxycodone were held. The patient had an ultrasound of the thyroid showing bilateral thyroid nodules. There was a 1.1 cm hypoechoic nodule in the lower pole on the left which could represent a parathyroid gland or eccentric thyroid nodule. Radiology felt further evaluation could be obtained with a parathyroid scan if warranted. The patient also had a head CT showing nothing acute. There was evidence of microvascular disease. The patient did have increasing pain in her legs after being given morphine. The on-call physician was called and she was given oxycodone, which then did help her pain. She became much more alert and awake. Her potassium was low, therefore supplementation was started. It was felt that the patient could be discharged home with home health PT. She will need to be nonweightbearing for 2 months and was advised to take an aspirin if she will be bedridden. She was also advised to increase her fluid intake. Objective Vital signs: Temp Pulse Resp BP Pulse Ox 98.1 F 65 16 154/67 H 96 11/24/18 07:57 11/24/18 07:57 11/24/18 07:57 11/24/18 07:57 11/24/18 08:00 Narrative: - *Routine HEENT Exam Head: Present: normocephalic Eye: Present: EOMI, PERRL ENT: Present: mucous membranes moist - *Routine Neck Exam Present: supple. Absent: lymphadenopathy - *Routine Respiratory Exam Present: CTA bilaterally - *Routine Cardiovascular Exam Present: RRR - *Routine Abdominal Exam Present: soft, normoactive bowel sounds. Absent: tenderness - *Routine Extremities Exam Absent: cyanosis, clubbing, edema Comments: diffuse joint pain at multiple joints and generalized muscle weakness - *Routine Skin Exam Present: warm. Absent: rash - *Routine Neurological Exam Present: alert, oriented X3 Results Labs on day of discharge: Labs from last 24 hours 11/24/18 05:58 POC Glucose 120 H DS: Diagnosis - Discharge Diagnosis (1) Hypercalcemia Status: Acute (2) Generalized weakness Status: Acute (3) Type 2 diabetes mellitus Status: Chronic (4) Fibromyalgia Status: Chronic (5) Hypertension Status: Chronic (6) Fracture of metatarsal of left foot, closed Status: Acute (7) Hypokalemia Status: Acute Discharge Plan - Patient Discharge Instructions ACTIVITY: Ambulate as tolerated, Limited activity (NWB for 2 months), No heavy lifting DIET: continue same diet Additional Instructions: Patient is to be discharged with home health with PT on board (with restrictions of NWB for 2 months). Patient was advised to take ASA as she will be bedridden. Patient was advised to drink fluids (water and lemonade preferably). Patient Instructions: DI for Hypercalcemia, How to Prevent Falls - Follow up Plan Follow up with: Rafaela Kellogg MD [Primary Care Provider] - 11/26/18 11:15 am Disposition: Home Health Service Home Medications: Home Medications Medication Instructions Recorded Confirmed Type Aspirin [Aspirin 81mg chewable 81 mg PO DAILY 11/18/18 11/22/18 History tab] Atenolol [Atenolol 25mg Tab] 25 mg PO DAILY 11/18/18 11/22/18 History Atorvastatin Calcium [Atorvastatin 80 mg PO HS 11/18/18 11/22/18 History 80mg Tab] Baclofen [Lioresal 10mg tablet] 5 mg PO TID 11/18/18 11/22/18 History Ropinirole HCl 0.5 mg PO HS 11/18/18 11/22/18 History raNITIdine HCl [Ranitidine HCl] 150 mg PO BID 11/18/18 11/22/18 History Allopurinol [Allopurinol 100mg 100 mg PO HS 11/19/18 11/23/18 History tablet] Cholecalciferol (Vitamin D3) 1,000 unit PO DAILY 11/19/18 11/22/18 History [Vitamin D3 1,000 Unit Cap] Fenofibrate,Micronized 67 mg PO DAILY 11/19/18 11/22/18 History [Fenofibrate] Insulin NPH Hum/Reg Insulin Hm 0 unit SQ DIRECTED 11/19/18 11/22/18 History [Novolin 70-30 100 Unit/ml Vial] Lisinopril [Lisinopril 10mg Tab] 10 mg PO DAILY 11/19/18 11/22/18 History Oxycodone HCl 10 mg PO QID 11/19/18 11/22/18 History Tramadol HCl [Tramadol 50mg 50 mg PO TID 11/19/18 11/22/18 History Tab] fentaNYL [Fentanyl] 12 mcg TD Q72H 11/19/18 11/22/18 History Prescriptions/Medication Reconciliation: Continued Aspirin [Aspirin 81mg chewable tab] 81 mg PO DAILY Ropinirole HCl 0.5 mg PO HS raNITIdine HCl [Ranitidine HCl] 150 mg PO BID Baclofen [Lioresal 10mg tablet] 5 mg PO TID Atenolol [Atenolol 25mg Tab] 25 mg PO DAILY Fenofibrate,Micronized [Fenofibrate] 67 mg PO DAILY fentaNYL [Fentanyl] 12 mcg TD Q72H Lisinopril [Lisinopril 10mg Tab] 10 mg PO DAILY Oxycodone HCl 10 mg PO QID Tramadol HCl [Tramadol 50mg Tab] 50 mg PO TID Cholecalciferol (Vitamin D3) [Vitamin D3 1,000 Unit Cap] 1,000 unit PO DAILY Atorvastatin Calcium [Atorvastatin 80mg Tab] 80 mg PO HS Allopurinol [Allopurinol 100mg tablet] 100 mg PO HS Insulin NPH Hum/Reg Insulin Hm [Novolin 70-30 100 Unit/ml Vial] 0 unit SQ DIRECTED Discontinued Pregabalin [Lyrica 225mg Cap] 225 mg PO BID
== END 2018-11-24 12:54 | disposition home health service (06) ==
LOC: ER 14:35 → 2ND 14:35
PROVIDERS: ADMIT Emergency Medicine; ATTEND Emergency Medicine
DX: M79.674 Pain in right toe(s); Z85.05 Personal history of malignant neoplasm of liver; S92.312D Displaced fracture of first metatarsal bone, left foot, subsequent encounter for fracture with routine healing; Z79.899 Other long term (current) drug therapy; X58.XXXD Exposure to other specified factors, subsequent encounter; Z83.49 Family history of other endocrine, nutritional and metabolic diseases; E87.6 Hypokalemia; Z88.8 Allergy status to other drugs, medicaments and biological substances; F17.210 Nicotine dependence, cigarettes, uncomplicated; Z90.710 Acquired absence of both cervix and uterus; E78.5 Hyperlipidemia, unspecified; Z79.891 Long term (current) use of opiate analgesic; E11.9 Type 2 diabetes mellitus without complications; I10 Essential (primary) hypertension; Z90.49 Acquired absence of other specified parts of digestive tract; M79.7 Fibromyalgia; W19.XXXA Unspecified fall, initial encounter; D64.9 Anemia, unspecified; Z82.49 Family history of ischemic heart disease and other diseases of the circulatory system; Z79.82 Long term (current) use of aspirin; G25.81 Restless legs syndrome; Z79.4 Long term (current) use of insulin; E83.52 Hypercalcemia; Z88.0 Allergy status to penicillin; Z91.048 Other nonmedicinal substance allergy status; Z80.9 Family history of malignant neoplasm, unspecified
CPT/HCPCS: 36415; 70450; 71020; 71046; 73630; 76536; 80048; 80053; 81001; 82330; 82962; 83735; 83970; 84080; 84484; 85025; 93005; 96365; 97162; 97165; 99284; 99285; G0378